=== PATIENT | female | born 1985 | race African-American/Black ===

== ENCOUNTER 2020-09-23 07:01 | Inpatient (IN) | payer OTHER ==
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
[~2020-09-23 07:01] MED LIST: Bupivacaine 0.25% 10 ML SDV ONE
[2020-09-23] MEDS ORDERED: Oxytocin/Lactated Ringers 10 UNIT/1,000 ML BAG IV SCH (07:45)
[2020-09-23] MEDS ORDERED: Sodium Chloride 0.9% 10 ML Syringe FLUSH PRN (07:45)
[2020-09-23] MEDS ORDERED: Ondansetron 4 MG/2 ML SDV IVPUSH PRN (07:45)
[2020-09-23] MEDS ORDERED: Nalbuphine 10 MG/1 ML Vial IVPUSH PRN (07:45)
[2020-09-23] MEDS: Lactated Ringers 1,000 ML IV SCH ×3 (08:18→15:36)
[2020-09-23] MEDS: Oxytocin/Lactated Ringers 10 UNIT/1,000 ML BAG IV SCH ×2 (08:20→21:40)
--- NOTE | 2020-09-23 12:18 | PCM.SN.2 ---
- Free Text/Narrative Note: Janay underwent AROM with resultant clear amniotic fluid. She is 2+ centimeters, 80% effaced, -3 station but well applied to the cervix, mid anterior position, soft. heart tones are normal. Contractions every 3 to 5 minutes. Moderate intensity. Assessment: 40-1/7-week intrauterine , slow progress in labor AROM accomplished. Anticipate increasing intensity of labor. Plan: Anticipate normal spontaneous vaginal delivery.
[2020-09-23] MEDS ORDERED: diphenhydrAMINE 50 MG/ML SDV IVPUSH PRN (15:01)
[2020-09-23] MEDS ORDERED: ePHEDrine 50 MG/ML SDV IVPUSH PRN (15:01)
[2020-09-23] MEDS ORDERED: Bupivacaine/fentaNYL/NS 100 ML Bag EPIDUR PRN (15:01)
[2020-09-23] MEDS ORDERED: fentaNYL 100 MCG/2 ML SDV EPIDUR PRN (15:01)
[2020-09-23] MEDS ORDERED: fentaNYL 100 MCG/2 ML SDV ONE (15:09)
--- NOTE | 2020-09-23 15:34 | PCM.PREANE ---
Preanesthetic Assessment - Procedure Proposed Procedure: epidural - Anesthesia/Transfusion/Family Hx Anesthesia History: No Prior Anesthesia Family History of Anesthesia Reaction: No Transfusion History: No Prior Transfusion(s) - Review of Systems General: Fatigue Pulmonary: No Symptoms Cardiovascular: No Symptoms Gastrointestinal: Abdominal Pain (labor) Neurological: No Symptoms Other: Reports: None - Physical Assessment Vital Signs: Last Vital Signs Temp 37.1 C 09/23/20 07:46 Pulse 95 09/23/20 07:46 Resp 18 09/23/20 07:46 BP 119/82 09/23/20 07:46 Pulse Ox Height: 1.85 m Weight: 76.771 kg ASA Class: 2 Mental Status: Alert & Oriented x3 Airway Class: Mallampati = 1 Dentition: Reports: Normal Dentition Thyro-Mental Finger Breadths: 3 Mouth Opening Finger Breadths: 3 ROM/Head Extension: Full Lungs: Clear to Auscultation, Normal Respiratory Effort Cardiovascular: Regular Rate, Regular Rhythm - Lab Values: Laboratory Last Values WBC 6.68 K/mm3 (3.98-10.04) 09/23/20 08:02 RBC 3.62 M/mm3 (3.98-5.22) L 09/23/20 08:02 Hgb 11.7 gm/dl (11.2-15.7) 09/23/20 08:02 Hct 34.9 % (34.1-44.9) 09/23/20 08:02 MCV 96.4 fl (79.4-94.8) H 09/23/20 08:02 MCH 32.3 pg (25.6-32.2) H 09/23/20 08:02 MCHC 33.5 g/dl (32.2-35.5) 09/23/20 08:02 RDW Std Deviation 44.4 fL (36.4-46.3) 09/23/20 08:02 Plt Count 199 K/mm3 (182-369) 09/23/20 08:02 MPV 9.5 fl (9.4-12.3) 09/23/20 08:02 Neut % (Auto) 75.2 % (34.0-71.1) H 09/23/20 08:02 Lymph % (Auto) 15.7 % (19.3-51.7) L 09/23/20 08:02 Mcdowell % (Auto) 7.8 % (4.7-12.5) 09/23/20 08:02 Eos % (Auto) 0.6 (0.7-5.8) L 09/23/20 08:02 Baso % (Auto) 0.1 % (0.1-1.2) 09/23/20 08:02 Neut # (Auto) 5.02 K/mm3 (1.56-6.13) 09/23/20 08:02 Lymph # (Auto) 1.05 K/mm3 (1.18-3.74) L 09/23/20 08:02 Mcdowell # (Auto) 0.52 K/mm3 (0.24-0.36) H 09/23/20 08:02 Eos # (Auto) 0.04 K/mm3 (0.04-0.36) 09/23/20 08:02 Baso # (Auto) 0.01 K/mm3 (0.01-0.08) 09/23/20 08:02 SARS-CoV-2 RNA (LEVON) Negative (NEGATIVE) 09/23/20 07:40 - Allergies Allergies/Adverse Reactions: Allergies Allergy/AdvReac Type Severity Reaction Status Date / Time No Known Allergies Allergy Verified 09/23/20 07:41 - Anesthesia Plan Pre-Op Medication Ordered: None - Acknowledgements Anesthesia Type Planned: Epidural Pt an Appropriate Candidate for the Planned Anesthesia: Yes Alternatives and Risks of Anesthesia Discussed w Pt/Guardian: Yes Pt/Guardian Understands and Agrees with Anesthesia Plan: Yes PreAnesthesia Questionnaire - Past Health History Medical/Surgical History: Denies Medical/Surgical History Gastrointestinal History: Reports: GERD [employer]ATE History: Reports: Fibroids, - SUBSTANCE USE Tobacco Use Status *Q: Never Tobacco User Second Hand Smoke Exposure: No Recreational Drug Use History: No - HOME MEDS Home Medications: Home Meds Docusate Sodium [Colace] 100 mg PO BID PRN 09/23/20 [History] Iron 18 mg PO DAILY 09/23/20 [History] - CURRENT (IN HOUSE) MEDS Current Meds: Current Medications Diphenhydramine HCl (Benadryl) 25 mg IVPUSH Q6H PRN PRN Reason: pruritis Ephedrine Sulfate (Ephedrine Sulfate) 5 mg IVPUSH ASDIRECTED PRN PRN Reason: Hypotension Fentanyl (Sublimaze) 100 mcg EPIDUR Q3H PRN PRN Reason: Pain Last Admin: 09/23/20 15:26 Dose: 100 mcg Documented by: Fentanyl/Bupivacaine HCl (Fentanyl/Bupivacaine/Ns 2 Mcg-0.125% 100 Ml) 100 ml EPIDUR ASDIRECTED PRN PRN Reason: Pain Last Admin: 09/23/20 15:29 Dose: 100 ml Documented by: Lactated Ringer's (Ringers, Lactated) 1,000 mls @ 100 mls/hr IV ASDIRECTED LENNY Last Admin: 09/23/20 14:54 Dose: 500 mls/hr Documented by: Oxytocin/Lactated Ringer's (Pitocin In Lr 10 Units/1,000 Ml) 10 unit in 1,000 mls @ 12 mls/hr IV TITRATE LENNY; Protocol Last Titration: 09/23/20 13:30 Dose: 13 munits/min, 78 mls/hr Documented by: Nalbuphine HCl (Nubain) 10 mg IVPUSH Q2H PRN PRN Reason: Pain Ondansetron HCl (Zofran) 4 mg IVPUSH Q4H PRN PRN Reason: Nausea/Vomiting Sodium Chloride (Saline Flush) 10 ml FLUSH ASDIRECTED PRN PRN Reason: Keep Vein Open Discontinued Medications Fentanyl (Sublimaze) Confirm Administered Dose 100 mcg .ROUTE .[employer] ONE Stop: 09/23/20 15:10 Oxytocin/Lactated Ringer's (Pitocin In Lr 10 Units/1,000 Ml) 10 unit in 1,000 mls @ 12 mls/hr IV TITRATE LENNY; Protocol
--- NOTE | 2020-09-23 22:21 | PCM.SN.2 ---
- Free Text/Narrative Note: Delivery note: Janay Contreras is a 35-year-old 2 para 0-0-1-0 -[place] female at 40-1/7 weeks gestational age with an VINAYAK of 09/22/2020 admitted on 09/23/2020 for induction of labor. She underwent Pitocin induction of labor which was later followed with AROM augmentation of labor. She progressed steadily towards delivery. Pitocin was increased to provide contractions every 3 minutes. Intense in nature. heart tones remained reassuring throughout the course. Vital signs are stable. At approximately 2100 hrs. on 09/23/2020 patient reached complete cervical dilation. At 2152 hrs. she delivered a viable, moreno, male with Apgars of 8 and 9, a length of 20.0 inches and a weight of 3370 g (seven pounds 6.9 ounces). Today delivered in a direct occiput anterior position. Head delivered without concerns with gentle downward and then upward traction the anterior and posterior shoulder delivered respectively. The baby is then delivered without problems with mom assisting in the delivery of the baby. The baby was placed on mom's abdomen and was dried with a warm blanket. Nose and mouth were bulb suction. Pitocin was increased to 500 cc an hour to facilitate increase in uterine tone and decrease likelihood of uterine bleeding. Umbilical cord was allowed to pulsate x3 minutes. The umbilical cord last 10 cm prior to the insertion of the umbilicus of the baby appeared very vascular and venous structures appeared almost varicose in nature. There were 3 vessels in the cord. Cord blood was obtained. After cord was obtained the second-degree perineal laceration was repaired in the usual fashion using 3-0 Monocryl suture. Labor epidural analgesia was used for perineal laceration repair anesthesia. The placenta delivered in a Mccarthy presentation at 2202 hrs. It appeared intact and complete and was discarded per patient desire. Patient had approximately 200 cc of blood loss. She plans to breast-feed. Condition: Good.
[2020-09-23] MEDS ORDERED: Witch Hazel Medicated Pads 40/Jar TOP PRN (22:25)
[2020-09-23] MEDS ORDERED: Benzocaine/Menthol 20%-0.5% Spray 56 GM Canister TOP PRN (22:25)
[2020-09-23] MEDS ORDERED: Acetaminophen 325 MG Tab PO PRN (22:25)
[2020-09-24] MEDS: Ibuprofen 600 MG Tab PO PRN ×2 (05:47→16:17)
[2020-09-24] MEDS: Prenatal Multivitamin with Calcium/Folic Acid/Iron Tab PO SCH (08:11)
--- NOTE | 2020-09-24 08:58 | PCM48HPAN ---
Post Anesthesia Note - EVALUATION WITHIN 48HRS OF ANESTHETIC Vital Signs in Normal Range: Yes Patient Participated in Evaluation: Yes Respiratory Function Stable: Yes Airway Patent: Yes Cardiovascular Function Stable: Yes Hydration Status Stable: Yes Pain Control Satisfactory: Yes Nausea and Vomiting Control Satisfactory: Yes Mental Status Recovered: Yes Vital Signs: Last Vital Signs Temp 36.7 C 09/24/20 07:20 Pulse 80 09/24/20 07:20 Resp 14 09/24/20 07:20 BP 118/81 09/24/20 07:20 Pulse Ox 97 09/24/20 07:20 - COMMENTS/OBSERVATIONS Free Text/Narrative:: no anesthesia complications noted
--- NOTE | 2020-09-24 11:48 | PCM.SN.2 ---
- Free Text/Narrative Note: note: day #1 Patient is doing well in the period. Minimal lochia, voiding well, ambulated without problems. Nursing without concerns. Patient is afebrile, vital signs are stable Abdomen is flat, soft, uterus is below the umbilicus and is firm and nontender. Legs are nontender. Assessment: recovery going well. Plan: Routine care. Patient be discharged home within the next 24-48 hours.
[2020-09-25] MEDS: Ibuprofen 600 MG Tab PO PRN (03:31)
--- NOTE | 2020-09-25 05:45 | PCM.DCSUM1 ---
Discharge Summary - Hospital Course Free Text/Narrative:: Janay Contreras is a 35-year-old 2 para 1-0-1-1 -[place]er female admitted at 40-1/7 weeks gestational age with an VINAYAK of 09/22/2020 admitted on 09/23/2020 for induction of labor. She underwent Pitocin induction of labor which was later followed with AROM augmentation of labor. She progressed steadily towards delivery. Pitocin was increased to provide contractions every 3 minutes. Intense in nature. heart tones remained reassuring throughout the course. Vital signs are stable. At approximately 2100 hrs. on 09/23/2020 patient reached complete cervical dilation. At 2152 hrs. she delivered a viable, moreno, male infant with Apgars of 8 and 9, a length of 20.0 inches and a weight of 3370 g (seven pounds 6.9 ounces). Today delivered in a direct occiput anterior position. Head delivered without concerns with gentle downward and then upward traction the anterior and posterior shoulder delivered respectively. The baby is then delivered without problems with mom assisting in the delivery of the baby. The baby was placed on mom's abdomen and was dried with a warm blanket. Nose and mouth were bulb suction. Pitocin was increased to 500 cc an hour to facilitate increase in uterine tone and decrease likelihood of uterine bleeding. Umbilical cord was allowed to pulsate x3 minutes. The umbilical cord last 10 cm prior to the insertion of the umbilicus of the baby appeared very vascular and venous structures appeared almost varicose in nature. There were 3 vessels in the cord. Cord blood was obtained. After cord was obtained the second-degree perineal laceration was repaired in the usual fashion using 3-0 Monocryl suture. Labor epidural analgesia was used for perineal laceration repair anesthesia. The placenta delivered in a Mccarthy presentation at 2202 hrs. It appeared intact and complete and was discarded per patient desire. Patient had approximately 200 cc of blood loss. This time patient is done well. She is voiding well, ambulating without concerns and has minimal lochia. Is breast-feeding without problems. She is desiring discharge home. Condition: Good. Diagnosis: Stroke: No - Discharge Data Discharge Date: 09/25/20 Discharge Disposition: Home, Self-Care 01 Condition: Good - Referral to Home Health Primary Care Physician: Dell Caraballo MD - Patient Instructions Diet: Regular Diet as Tolerated (Nursing diet with increased calories and calcium as recommended) Activity: As Tolerated (No intercourse or tampons until bleeding resolves) Driving: May Drive Today Showering/Bathing: May Shower Showering/Bathing, Other: May take a bath Notify Provider of: Fever, Increased Pain, Swelling and Redness, Nausea and/or Vomiting - Discharge Plan Home Medications: Home Meds Docusate Sodium [Colace] 100 mg PO BID PRN 09/23/20 [History] Iron 18 mg PO DAILY 09/23/20 [History] Acetaminophen [Tylenol] 650 mg PO Q4H PRN tablet 09/25/20 [Rx] Ibuprofen [Motrin] 600 mg PO Q4H PRN tablet 09/25/20 [Rx] Vit with Ca/FA/Iron [ Plus Iron] 1 each PO DAILY tablet 09/25/20 [Rx] Referrals: Dell Caraballo MD [Primary Care Provider] - (Return to clinicDr. Caraballo2 weeks.) - Discharge Summary/Plan Comment DC Time >30 min.: No Discharge Summary/Plan Comment: Discharge instructions: 1. Discharge home 2. Diet, activity and follow-up discussed with patient. Recommend nursing diet with increased calories and calcium. 3. Precautions given concern increased pain, bleeding, temperature, signs/symptoms of DVT/PE. 4. Medications per home medication was printed, discussed with and given to the patient. 5. Return to clinic-Dr. Caraballo[facility] in 2 weeks. Diagnosis: Term -delivered Condition: Good - Patient Data Vitals - Most Recent: Last Vital Signs Temp 36.6 C 09/25/20 03:37 Pulse 73 09/25/20 03:37 Resp 16 09/25/20 03:37 BP 114/77 09/25/20 03:37 Pulse Ox 99 09/25/20 03:37 Weight - Most Recent: 76.771 kg I&O - Last 24 hours: Intake & Output 09/24/20 09/24/20 09/25/20 14:59 22:59 06:59 Intake Total 180 120 Balance 180 120 Med Orders - Current: Current Medications Acetaminophen (Tylenol) 650 mg PO Q4H PRN PRN Reason: mild pain or fever Benzocaine/Menthol (Dermoplast Pain Relief [place]) 0 gm TOP ASDIRECTED PRN PRN Reason: Perineal Comfort Measure Ibuprofen (Motrin) 600 mg PO Q4H PRN PRN Reason: Mild pain or fever Last Admin: 09/25/20 03:31 Dose: 600 mg Documented by: Maurice Multivit/Executive Pastry Chef/Iron/Folic Ac ( Plus Iron) 1 each PO DAILY LENNY Last Admin: 09/24/20 08:11 Dose: 1 each Documented by: Essie Ya) 1 pad TOP ASDIRECTED PRN PRN Reason: Perineal Comfort Measure Discontinued Medications Bupivacaine HCl (Sensorcaine-Mpf 0.25%) 10 ml .ROUTE .[employer] ONE Stop: 09/23/20 00:01 Diphenhydramine HCl (Benadryl) 25 mg IVPUSH Q6H PRN PRN Reason: pruritis Ephedrine Sulfate (Ephedrine Sulfate) 5 mg IVPUSH ASDIRECTED PRN PRN Reason: Hypotension Fentanyl (Sublimaze) 100 mcg EPIDUR Q3H PRN PRN Reason: Pain Last Admin: 09/23/20 15:26 Dose: 100 mcg Documented by: Fentanyl (Sublimaze) Confirm Administered Dose 100 mcg .ROUTE .[employer] ONE Stop: 09/23/20 15:10 Last Admin: 09/24/20 19:57 Dose: Not Given Documented by: Fentanyl/Bupivacaine HCl (Fentanyl/Bupivacaine/Ns 2 Mcg-0.125% 100 Ml) 100 ml EPIDUR ASDIRECTED PRN PRN Reason: Pain Last Admin: 09/23/20 15:29 Dose: 100 ml Documented by: Oxytocin/Lactated Ringer's (Pitocin In Lr 10 Units/1,000 Ml) 10 unit in 1,000 mls @ 12 mls/hr IV TITRATE LENNY; Protocol Lactated Ringer's (Ringers, Lactated) 1,000 mls @ 100 mls/hr IV ASDIRECTED LENNY Last Admin: 09/23/20 15:36 Dose: 125 mls/hr Documented by: Oxytocin/Lactated Ringer's (Pitocin In Lr 10 Units/1,000 Ml) 10 unit in 1,000 mls @ 12 mls/hr IV TITRATE LENNY; Protocol Last Titration: 09/23/20 22:45 Dose: 41.67 munits/min, 250 mls/hr Documented by: Nalbuphine HCl (Nubain) 10 mg IVPUSH Q2H PRN PRN Reason: Pain Ondansetron HCl (Zofran) 4 mg IVPUSH Q4H PRN PRN Reason: Nausea/Vomiting Sodium Chloride (Saline Flush) 10 ml FLUSH ASDIRECTED PRN PRN Reason: Keep Vein Open
[2020-09-25] MEDS: Prenatal Multivitamin with Calcium/Folic Acid/Iron Tab PO SCH (14:25)
== END 2020-09-25 14:15 | disposition home or self-care (01) | DRG 807 ==
LOC: JD.OB 07:01 → OBSVTOIN 21:52 → JD.OB 21:53
PROVIDERS: ADMIT Obstetrics & Gynecology; ATTEND Obstetrics & Gynecology
PROC: 10E0XZZ Delivery of Products of Conception, External Approach (ICD-10-PCS; principal; 2020-09-23)
PROC: 3E033VJ Introduction of Other Hormone into Peripheral Vein, Percutaneous Approach (ICD-10-PCS; 2020-09-23)
PROC: 10907ZC Drainage of Amniotic Fluid, Therapeutic from Products of Conception, Via Natural or Artificial Opening (ICD-10-PCS; 2020-09-23)
PROC: 3E0R3BZ Introduction of Anesthetic Agent into Spinal Canal, Percutaneous Approach (ICD-10-PCS; 2020-09-23)
DX: O48.0 Post-term pregnancy (principal); Z37.0 Single live birth; Z3A.40 40 weeks gestation of pregnancy; Z20.828 Contact with and (suspected) exposure to other viral communicable diseases
CPT/HCPCS: 36415; 51702; 59025; 59409; 85025; 86592; A9270-GY; J2590; J3010; J3490; J7120; U0002